=== PATIENT | male | born 1945 | race Caucasian/White ===

== ENCOUNTER → 2023-08-10 08:26 | Outpatient (REF) | payer MEDICARE, OTHER, SELFPAY ==
[2023-08-10 09:39] LABS: Urine Albumin Negative (Neg - Trace); Urine Bilirubin Negative (Negative); Urine Character Clear (Clear); Urine Color Yellow; Urine Glucose Negative (Negative); Urine Ketone Negative (Negative); Urine Leukocyte Trace (Negative); Urine Nitrite Negative (Negative); Urine Occult Blood Negative (Negative); Urine Urobilinogen Negative (Neg - 1+)
[2023-08-10 10:22] LABS: ALT (SGPT) 27 U/L (0-50); AST (SGOT) 33 U/L (17-59); Albumin 4.3 g/dl (3.5-5.0); Alkaline Phosphatase 92 U/L (38-126); Blood Urea Nitrogen 31 mg/dl (9-20); Calcium 9.7 mg/dl (8.4-10.2); Chloride 104 mmol/L (98-107); Glucose 114 mg/dl (70-99); HDL Cholesterol 50 mg/dl; LDL Cholesterol, Calculated 56 mg/dl; Potassium 4.2 mmol/L (3.5-5.1); Sodium 138 mmol/L (135-145); Total Cholesterol 121 mg/dl (50-199); Triglyceride 78 mg/dl (10-149); Very Low Density Lipoprotein 15 mg/dl (0-30); eGFR > 60.00
[2023-08-10 10:55] LABS: Carbon Dioxide 28 mmol/L (22-30)
[2023-08-10 10:55] LABS: Urine Bacteria Few (Negative); Urine Red Blood Cell 0-2 /HPF (0-2); Urine White Cell 0-2 /HPF (0-5)
== END ==
LOC: HWLAB 08:26
PROVIDERS: ATTENDING PHYSICIAN Family Medicine
DX: R73.01 Impaired fasting glucose (principal); I10 Essential (primary) hypertension
CPT/HCPCS: 36415; 80053; 80061; 81003; 81015; 83036

== ENCOUNTER → 2023-08-17 08:48 | Outpatient (REF) | payer MEDICARE, OTHER, SELFPAY ==
[2023-08-17 12:09] LABS: Erythrocyte Sed Rate 1 mm/hour (0-20)
== END ==
LOC: HWLAB 08:48
PROVIDERS: ATTENDING PHYSICIAN Physician Assistant Medical; FAMILY PHYSICIAN Family Medicine
DX: Z96.641 Presence of right artificial hip joint (principal)
CPT/HCPCS: 36415; 85652; 86140

== ENCOUNTER → 2024-07-16 07:50 | Outpatient (REF) | payer MEDICARE, OTHER, SELFPAY ==
[2024-07-16 10:44] LABS: ALT (SGPT) 29 U/L (0-50); AST (SGOT) 31 U/L (17-59); Albumin 4.2 g/dl (3.5-5.0); Alkaline Phosphatase 86 U/L (38-126); Blood Urea Nitrogen 28 mg/dl (9-20); Calcium 9.2 mg/dl (8.4-10.2); Carbon Dioxide 27 mmol/L (22-30); Chloride 104 mmol/L (98-107); Glucose 107 mg/dl (70-99); HDL Cholesterol 51 mg/dl; LDL Cholesterol, Calculated 51 mg/dl; Potassium 4.6 mmol/L (3.5-5.1); Sodium 141 mmol/L (135-145); Total Bilirubin 0.7 mg/dl (0.2-1.3); Total Cholesterol 119 mg/dl (50-199); Total Protein 6.7 g/dl (6.3-8.2); Triglyceride 88 mg/dl (10-149); Very Low Density Lipoprotein 17 mg/dl (0-30); eGFR > 60.00
[2024-07-16 10:47] LABS: Glycohemoglobin (HgbA1c) 5.8 % (4.0-5.6)
[2024-07-16 10:54] LABS: Urine Albumin Trace (Neg - Trace); Urine Bilirubin Negative (Negative); Urine Character Clear (Clear); Urine Color Yellow; Urine Glucose Negative (Negative); Urine Ketone Negative (Negative); Urine Leukocyte Negative (Negative); Urine Nitrite Negative (Negative); Urine Occult Blood Negative (Negative); Urine Specific Gravity 1.025 (<1.030); Urine Urobilinogen Negative (Neg - 1+)
== END ==
LOC: HWLAB 07:50
PROVIDERS: ATTENDING PHYSICIAN Family Medicine
DX: I10 Essential (primary) hypertension (principal); R73.01 Impaired fasting glucose
CPT/HCPCS: 36415; 80053; 80061; 81003; 83036

== ENCOUNTER 2024-12-24 17:51 | Emergency (ER) | payer MEDICARE, OTHER, SELFPAY ==
[2024-12-24] VITALS (7 sets, daily range): BP systolic 103–138; BP diastolic 66–88; BMI 24.3
[2024-12-24 18:13] LABS: Hematocrit 44.0 % (39.0-52.0); Hemoglobin 14.6 g/dL (13.0-18.0); Mean Corp Hgb Conc. 33.2 g/dL (33.0-37.0); Mean Corpuscular Volume 85.8 fL (80.0-94.0); Nucleated Red Blood Cells % 0 % (-); Platelet Count 177 10^3/uL (130-400); Red Cell Dist. Width 13.7 % (11.5-14.5)
[2024-12-24 18:30] LABS: ALT (SGPT) 30 U/L (0-50); AST (SGOT) 30 U/L (17-59); Albumin 4.2 g/dl (3.5-5.0); Alkaline Phosphatase 91 U/L (38-126); Blood Urea Nitrogen 23 mg/dl (9-20); Calcium 9.4 mg/dl (8.4-10.2); Carbon Dioxide 29 mmol/L (22-30); Chloride 105 mmol/L (98-107); Estimated Creatinine Clearance 65 ml/min; Glucose 124 mg/dl (70-99); Potassium 4.5 mmol/L (3.5-5.1); Sodium 139 mmol/L (135-145); Total Protein 6.8 g/dl (6.3-8.2); eGFR > 60.00
[2024-12-24] MEDS: DECADRON 10 MG IV (19:18)
--- NOTE | 2024-12-24 19:21 | ED.CVA ---
History of Present Illness
General
Chief Complaint: CVA/TIA Symptoms
Time Seen by Provider: 12/24/24 18:13
Onset of Stroke Symptoms
Onset of symptoms known: No
Time pt last seen normal is known: No
History of Present Illness
History of Present Illness:
Patient is a 71-year-old male with history of melanoma, hypertension hyperlipidemia presenting to the emergency department with aphasia. Says been ongoing for the past 2 months. Yesterday patient's daughter noticed that the symptoms worsened. No
dysarthria numbness tingling weakness. No traumatic events.
Past History
Past History
ED Past Medical History: HTN
ED Past Surgical History: None
Social History
Tobacco: Non-smoker
Personal:
Living: with family
Phy Exam
Physical Exam
Physical Exam:
GENERAL: in no acute distress
HEENT: normocephalic, extraocular movements intact, moist oral mucosa
NECK: normal inspection
RESPIRATORY: no respiratory distress, clear to auscultation bilaterally
CARDIOVASCULAR: regular rate and rhythm
ABDOMEN/: soft, non-distended, non-tender to palpation, no rebound or guarding
EXTREMITIES: non-tender, no edema/swelling
NEUROLOGIC: awake and alert, significant expressive aphasia, no obvious motor or sensory deficit
SKIN: warm
Course
Orders/Labs/Results
Orders:
Orders
12/24/24 17:[address] [CT Head W/o Iv Contrast] Urgent
Comment:
Reason For Exam: aphasia
12/24/24 18:00
Complete Blood Count/With Diff Urgent
Comprehensive Metabolic Panel Urgent
12/24/24 19:00
Dexamethasone Sod Phosphate [Decadron] 10 mg IV NOW STA
12/24/24 19:56
Levetiracetam Injectable [Keppra] 500 mg IV NOW STA
Abnormal Lab Results
12/24/24
18:00
Absolute Neuts (auto) 6.6 H 10^3/uL
(1.4-6.5)
Absolute Monos (auto) 0.9 H 10^3/uL
(0.1-0.6)
Lymphocytes % 16.1 L %
(20.5-51.1)
Monocytes % 9.7 H %
(1.7-9.3)
BUN 23 H mg/dl
(9-20)
Glucose 124 H mg/dl
(70-99)
12/24/24 18:00
12/24/24 18:00
Vital Signs
Initial and Last Documented VS:
Initial Vital Signs
Temp Pulse Resp BP Pulse Ox
98.7 F 70 16 122/88 98
12/24/24 17:53 12/24/24 17:53 12/24/24 17:53 12/24/24 17:53 12/24/24 17:53
Last Documented Vital Signs
Temp Pulse Resp BP Pulse Ox
98.7 F 85 25 122/66 95
12/24/24 17:53 12/24/24 22:00 12/24/24 22:00 12/24/24 22:00 12/24/24 20:00
MDM/Problems Addressed
Differential Diagnosis Includes:
Patient is a 71-year-old male with history of melanoma presenting to the emergency department with ongoing expressive aphasia since October. On arrival vitals unremarkable and exam does show significant expressive aphasia but no other neurodeficits.
Concern for CVA versus malignancy. Blood work obtained prior to evaluation is unremarkable. CT scan, interpretation with large left-sided temporal mass with midline shift. Per the official read it is about 6.6 cm with vasogenic edema and mass
effect and 6 mm right midline shift.. Will give Decadron. Patient will prefer to be transferred to [facility]. Will discuss with neurosurgery.
*Pulse Oximetry
SaO2: 97
Oxygen Mode of Delivery: Room air
Patient hypoxic: no
*Critical Care Note
Total Time (30-74mins, 75-104mins- exclusive of procedures): Not Applicable
Update Note
Update Note:
Discussed with neurosurgery Dr. Zaragoza who accepted patient for transfer. Recommended 500 Keppra twice daily as well as 2 mg of Decadron 3 times daily. Will hold off as we just gave the Decadron bolus. Pending transfer to [facility] at this time.
ED Attending Note
-
Portions of this chart may have been created with voice recognition software.� Occasional wrong word or��sound alike� substitutions may have occurred due to the inherent limitations of voice recognition software.
Discharge Plan
Departure
Patient Disposition: Acute Care Hospital
Date of Disposition: 12/24/24
Time of Disposition: 19:55
Discharge Problem:
Brain mass
Prescriptions:
No Action
tamsulosin 0.4 MG capsule
0.4 mg PO DAILY
metoprolol succinate 100 MG tablet extended release 24 hr
100 mg PO DAILY
hydrochlorothiazide 12.5 MG capsule
12.5 mg PO DAILY
finasteride 5 MG tablet
5 mg PO DAILY
rosuvastatin [Crestor] 10 MG tablet
10 mg PO DAILY
levofloxacin [Levaquin] 500 MG tablet
500 mg PO DAILY Qty: 3 0RF
Referrals:
UNKNOWN - PT DOES,NOT KNOW [Unknown Provider]
Hospital Transfer
Other hospital: [facility]
I certify that the patient requires transfer: Yes
Discussed case with accepting physician: veda
Reason for transfer: higher level of care
Interventions
Interventions:
*Risk Screen - Suicide Last Done: 12/24/24 18:45
*General Assessment Last Done: 12/24/24 18:15
*Neglect/Abuse Screening Last Done: 12/24/24 18:45
*ED- Fall Risk Assessment Last Done: 12/24/24 18:15
*ED COVID-19 Vaccine History Last Done: 12/24/24 18:15
*Nursing Disposition Last Done: 12/25/24 00:26
ED- Pulmonary Assessment Last Done: 12/24/24 18:40
ED- Neurological Assessment Last Done: 12/24/24 18:40
ED- Cardiac Assessment Last Done: 12/24/24 18:40
Discharge Date and Time
Discharge Date/Time: 12/25/24 00:27
Print Language: HUNGARIAN
[2024-12-24] MEDS: KEPPRA 500 MG IV (20:01)
== END 2024-12-25 00:27 | disposition short-term general hospital (02) ==
LOC: EMR 17:51
PROVIDERS: EMERGENCY PHYSICIAN Student in an Organized Health Care Education/Training Program; FAMILY PHYSICIAN Family Medicine
DX: G93.9 Disorder of brain, unspecified (principal); I10 Essential (primary) hypertension; E78.00 Pure hypercholesterolemia, unspecified; Z85.820 Personal history of malignant melanoma of skin
CPT/HCPCS: 99285; 96374; 96375; 70450; 80053; 85025